=== PATIENT | male | born 1980 | race Caucasian/White ===

== ENCOUNTER 2018-01-29 21:16 | Emergency (ER) | payer BC, OTHER ==
[2018-01-29 21:24] VITALS: BP 158/92
--- NOTE | 2018-01-29 22:10 | EDPHY ---
H & P Stated Complaint: black window spider bite, R forearm bite, Time Seen by Provider: 01/29/18 22:09 HPI/ROS: HPI: This is a 37-year-old male who presents with Chief Complaint: black window spider bite, R forearm bite, Location: Right forearm Quality: Black spider bite Duration: Today Signs and Symptoms: No bleeding, no radiation, no numbness, no weakness, no tingling, no incontinence, no decreased range of motion, no swelling, no pain, no fever Timing: Acute Severity: Mild Context: Patient is right-hand dominant, presents with spider bite on his right forearm. He is concerned as it may be a black . He denies any paresthesias, numbness, tingling, redness, discharge. He used marker to [place] around the bite area. Unsure of tetanus status. Modifying Factors: None Comment: ROS: A comprehensive 10 system review of systems is otherwise negative aside from elements mentioned in the history of present illness. MEDICAL/SURGICAL/SOCIAL HISTORY: Medical history: Hay fever. Does not take any regular medications. Surgical history: Denies Social history: Never smoked CONSTITUTIONAL: awake and alert, no obvious distress HEENT: Atraumatic and normocephalic. NECK: supple EXTREMITIES: 2/2 pulses, strength 5/5, right forearm shows 3 mm black marker on the anterior portion but no erythema, wheel, induration, necrosis appreciated. DIP/PIP/MCP flexion/extension intact with good light touch sensation. no deformities, no clubbing, no cyanosis or edema. NEUROLOGICAL: no focal neuro deficits. GCS 15. Light touch sensation intact. SKIN: Warm and dry, no erythema. no rash. Good capillary refill. Source: Patient Exam Limitations: No limitations - Personal History Current Tetanus Diphtheria and Acellular Pertussis (TDAP): No - Medical/Surgical History Hx Asthma: No Hx Chronic Respiratory Disease: No Hx Diabetes: No Hx Cardiac Disease: No Hx Renal Disease: No Hx Cirrhosis: No Hx Alcoholism: No Hx HIV/AIDS: No Hx Splenectomy or Spleen Trauma: No Other PMH: Hay fever - Social History Smoking Status: Never smoked Constitutional: Initial Vital Signs Temperature (C) 36.9 C 01/29/18 21:22 Heart Rate 89 01/29/18 21:22 Respiratory Rate 17 01/29/18 21:22 Blood Pressure 158/92 H 01/29/18 21:22 O2 Sat (%) 98 01/29/18 21:22 O2 Delivery Mode Room Air Allergies/Adverse Reactions: No Known Allergies Allergy (Unverified 01/29/18 21:24) Home Medications: Medication Instructions Recorded Cephalexin [Keflex (*)] 500 mg PO TID #21 cap 01/29/18 Medical Decision Making ED Course/Re-evaluation: Vital signs reviewed and stable upon arrival. No signs of cellulitis/necrosis/abscess. Patient placed on antibiotic prophylaxis and given Keflex. Tetanus booster given Verbal and written wound care instructions provided. No signs of neurovascular compromise/tenting of skin/compartment syndrome/ extremities and joints examined above and below area of concern and are neurovascularly intact. This patient was seen under the supervision of my secondary supervising physician. I evaluated care for this patient independently. Discussed this patient with Dr. Santos. Differential Diagnosis: Differential diagnosis includes but is not limited to insect bite. - Data Points Medications Given: Discontinued Medications Cephalexin (Keflex 500 Mg Prepack#4) 1 btl TAKEHOME EDNOW ONE PRN Reason: Protocol Stop: 01/29/18 22:32 Last Admin: 01/29/18 22:46 Dose: 1 btl Diphtheria/Tetanus/Acell Pertussis (Boostrix) 0.5 ml IM .ONCE ONE Stop: 01/29/18 22:32 Last Admin: 01/29/18 22:46 Dose: 0.5 ml Departure - Departure Disposition: Home, Routine, Self-Care Clinical Impression: Spider bite Qualifiers: Encounter type: initial encounter Injury intent: accidental or unintentional Qualified Code(s): T63.301A - Toxic effect of unspecified spider venom, accidental (unintentional), initial encounter Condition: Good Instructions: Cephalexin (By mouth), Insect Bite or Sting (ED) Additional Instructions: Wash the site daily with antibacterial soap and water; then pat dry; apply topical antibiotic ointment and clean sterile dressing daily until fully healed.. Take Tylenol 650 mg every 4 hours and/or Ibuprofen 600 mg every 8 hours with food as needed for pain. Take antibiotic as directed. Do not skip a dose. Apply ice for 30 minutes at a time; 2-3 times per day for the next 1-2 days. Return to the ER immediately if you experience redness, red streaks, have fevers /chills, flu like symptoms, limited range of motion, or any other symptoms that concern you. Referrals: [facility],. [Clinic] - 3-4 days, if not improved Prescriptions: Cephalexin [Keflex (*)] 500 mg PO TID #21 cap
[2018-01-29] MEDS ORDERED: TDAP ADULT 0.5 ML INJ (BOOSTRIX) IM ONE (22:31)
[2018-01-29] MEDS ORDERED: CEPHALEXIN 500MG PREPACK#4 BTL TAKEHOME ONE (22:31)
== END 2018-01-29 22:51 | disposition home or self-care (01) ==
DX: T63.301A Toxic effect of unspecified spider venom, accidental (unintentional), initial encounter (principal); Z23 Encounter for immunization